=== PATIENT | female | born 1975 | race Caucasian/White ===

== ENCOUNTER 2022-01-26 09:06 | Outpatient (REF) | payer OTHER, SELFPAY ==
--- NOTE | ~2022-01-26 | XR_ITS ---
EXAMINATION: XR KNEE STANDING, BILATERAL XR KNEE, RIGHT CLINICAL INFORMATION: Pain. COMPARISON: No films to compare. TECHNIQUE: Right knee 2 views. Standing view of the knees. BILATERAL KNEES: Standing view of the knees demonstrates some mild medial joint space loss right greater than left. The lateral joint spaces are fairly well preserved. RIGHT KNEE: 2 detailed views of the right knee show the patella to be fairly well seated on the sunrise image. No significant degenerative change is seen. No bony erosion. XR/XR knee RT 2V IMPRESSION: Some mild medial joint space loss is noted right greater than left knee.
--- NOTE | ~2022-01-26 | XR_ITS ---
EXAMINATION: XR KNEE STANDING, BILATERAL XR KNEE, RIGHT CLINICAL INFORMATION: Pain. COMPARISON: No films to compare. TECHNIQUE: Right knee 2 views. Standing view of the knees. BILATERAL KNEES: Standing view of the knees demonstrates some mild medial joint space loss right greater than left. The lateral joint spaces are fairly well preserved. RIGHT KNEE: 2 detailed views of the right knee show the patella to be fairly well seated on the sunrise image. No significant degenerative change is seen. No bony erosion. XR/XR knee standing BI IMPRESSION: Some mild medial joint space loss is noted right greater than left knee.
== END 2022-01-26 09:07 | disposition home or self-care (01) ==
LOC: HO.HOSX 09:06
PROVIDERS: Visit Provider Physician Assistant
DX: M23.91 Unspecified internal derangement of right knee (principal)
CPT/HCPCS: 73560; 73565

== ENCOUNTER 2022-02-03 07:26 | Outpatient (REF) | payer OTHER, SELFPAY ==
--- NOTE | ~2022-02-03 | MR_ITS ---
EXAMINATION: MR KNEE WITHOUT CONTRAST, RIGHT CLINICAL INFORMATION: Right knee pain COMPARISON: Radiographs 01/26/2022 TECHNIQUE: MRI of the knee without contrast was performed using routine sequences on a high-field scanner. FINDINGS: MENISCI: Medial Meniscus: The meniscal body is slightly extruded. No definite tear. Lateral Meniscus: Intact LIGAMENTS: Cruciate: Intact Collateral: Intact EXTENSOR MECHANISM: Intact ARTICULAR CARTILAGE/BONE: Patellofemoral Compartment: Focal cartilage thinning and irregularity with subchondral edema of the medial trochlea inferiorly. Medial Compartment: Cartilage thinning and surface irregularity throughout the weightbearing femoral condyle with minimal marginal osteophytes. Lateral Compartment: Normal JOINT FLUID AND BURSAE: Trace joint effusion. MR/MR knee RT wo con IMPRESSION: The medial meniscus body is slightly extruded. No definite meniscal tear. There is mild medial compartment osteoarthritis with a trace joint effusion.
== END 2022-02-03 07:27 | disposition home or self-care (01) ==
LOC: HO.MRI 07:26
PROVIDERS: PCP Internal Medicine; Visit Provider Physician Assistant
DX: M23.91 Unspecified internal derangement of right knee (principal)
CPT/HCPCS: 73721

== ENCOUNTER → 2022-02-10 12:15 | Outpatient (BNVA) | payer OTHER, SELFPAY | PROVIDERS: PCP Internal Medicine; Visit Provider Physician Assistant | DX: M17.11 Unilateral primary osteoarthritis, right knee (principal) | CPT/HCPCS: J1040 ==

== ENCOUNTER 2022-05-12 07:56 | Outpatient (REF) | payer OTHER, SELFPAY ==
[2022-05-12 12:00] LABS: MANUAL DIFF FLAG NO
[2022-05-12 12:06] LABS: Basophils Percent Auto 0.5 % (0-2); Eosinophils Absolute Auto 0.1 X10*3/uL (0.0-0.4); Eosinophils Percent Auto 1.2 % (0-4); Hematocrit 38.7 % (37.0-47.0); Hemoglobin 12.4 g/dl (12.0-16.0); Imm Gran Abs Auto 0.03 X10*3/uL (0.00-0.03); Imm Gran Pct Auto 0.4 % (0.0-0.4); Lymphocytes Percent Auto 27.1 % (20-40); Mean Corpuscular Hemoglobin 29.8 pg (27.0-33.0); Mean Platelet Volume 10.4 fL (9.4-12.3); Monocytes Absolute Auto 0.5 X10*3/uL (0.1-1.2); Monocytes Percent Auto 7.1 % (2-11); Neutrophils Absolute Auto 4.7 x10*3/uL (2.0-8.3); Neutrophils Percent Auto 63.7 % (45-73); Platelet Count 270 X10*3/uL (160-400); Red Blood Count 4.16 X10*6/uL (4.20-5.50); Red Cell Distribution Width 12.9 % (11.0-16.0); White Blood Count 7.5 X10*3/uL (4.8-10.8)
[2022-05-12 12:38] LABS: Erythrocyte Sedimentation Rate 21 MM/HR (0-20)
[2022-05-12 12:46] LABS: Alanine Aminotransferase 21 U/L (0-31); Albumin Level 4.2 g/dL (3.5-5.0); Alkaline Phosphatase 104 U/L (39-117); Anion Gap 12 (12-20); Aspartate Amino Transferase 15 U/L (5-31); Blood Urea Nitrogen 13 mg/dL (9-16); C Reactive Protein 0.67 mg/dL (< or = 0.50); Calcium 9.2 mg/dL (8.4-10.2); Carbon Dioxide 28 mmol/L (22-29); Chloride 107 mmol/L (96-108); Estimated Glomerular Filt Rate > 60; Glucose Random 127 mg/dL (60-115); Potassium 3.8 mmol/L (3.3-5.1); Sodium 143 mmol/L (135-145); Total Protein 7.2 g/dL (6.5-8.0)
[2022-05-12 12:57] LABS: Creatinine Urine 29.58 mg/dL; Total Protein Urine Random < 7 mg/dL (<12)
[2022-05-12 13:56] LABS: Bilirubin Total 0.3 mg/dL (0.0-1.0)
[2022-05-15 21:42] LABS: Antibody to SS-A Antigen <1.0 NEG AI (<1.0 NEG); Antibody to SS-B Antigen <1.0 NEG AI (<1.0 NEG)
[2022-05-16 12:31] LABS: Anti Nuclear Antibody Screen NEGATIVE (NEGATIVE)
== END 2022-05-12 07:57 | disposition home or self-care (01) ==
LOC: HO.HMGCLDS 07:56
PROVIDERS: PCP Internal Medicine; Visit Provider Internal Medicine Rheumatology
DX: M79.641 Pain in right hand (principal); M79.642 Pain in left hand; M79.671 Pain in right foot; M79.672 Pain in left foot; R63.5 Abnormal weight gain; M25.50 Pain in unspecified joint
CPT/HCPCS: 36415; 80053; 84156; 84443; 85025; 85652; 86038; 86039; 86140; 86235

== ENCOUNTER 2022-05-13 07:49 | Outpatient (REF) | payer OTHER, SELFPAY ==
--- NOTE | ~2022-05-13 | XR_ITS ---
EXAMINATION: BILATERAL HAND X-RAY CLINICAL INFORMATION: Pain COMPARISON: None TECHNIQUE: 3 views of each hand FINDINGS: Bone alignment is normal. No fracture or dislocation is seen. Bone mineralization is normal. Joint spaces are normal. Soft tissues are normal. XR/XR hand RT min 3V IMPRESSION: Unremarkable exam.
--- NOTE | ~2022-05-13 | XR_ITS ---
EXAMINATION: BILATERAL HAND X-RAY CLINICAL INFORMATION: Pain COMPARISON: None TECHNIQUE: 3 views of each hand FINDINGS: Bone alignment is normal. No fracture or dislocation is seen. Bone mineralization is normal. Joint spaces are normal. Soft tissues are normal. XR/XR hand LT min 3V IMPRESSION: Unremarkable exam.
--- NOTE | ~2022-05-13 | XR_ITS ---
EXAMINATION: BILATERAL FOOT X-RAY CLINICAL INFORMATION: Pain. COMPARISON: None. TECHNIQUE: 3 views of each foot. FINDINGS: RIGHT: There is an old healed fracture and a cerclage wire seen in the proximal phalanx of the great toe. No acute fracture or dislocation is seen. There is arthritis at the 1st MTP joint. Joint spaces are otherwise normal. There is a plantar calcaneal spur. Soft tissues are otherwise normal. LEFT: There are postosteotomy changes to the medial 1st metatarsal head. There are cerclage wires in the proximal phalanx of the great toe. There is no acute fracture or dislocation. Joint spaces are normal. There are calcaneal spurs. XR/XR foot RT min 3V IMPRESSION: Post-surgical changes to the bilateral proximal phalanges of the 1st toes and left 1st metatarsal head osteotomy. There is mild arthritis at the right 1st MTP joint. There are bilateral plantar calcaneal spurs.
--- NOTE | ~2022-05-13 | XR_ITS ---
EXAMINATION: BILATERAL FOOT X-RAY CLINICAL INFORMATION: Pain. COMPARISON: None. TECHNIQUE: 3 views of each foot. FINDINGS: RIGHT: There is an old healed fracture and a cerclage wire seen in the proximal phalanx of the great toe. No acute fracture or dislocation is seen. There is arthritis at the 1st MTP joint. Joint spaces are otherwise normal. There is a plantar calcaneal spur. Soft tissues are otherwise normal. LEFT: There are postosteotomy changes to the medial 1st metatarsal head. There are cerclage wires in the proximal phalanx of the great toe. There is no acute fracture or dislocation. Joint spaces are normal. There are calcaneal spurs. XR/XR foot LT min 3V IMPRESSION: Post-surgical changes to the bilateral proximal phalanges of the 1st toes and left 1st metatarsal head osteotomy. There is mild arthritis at the right 1st MTP joint. There are bilateral plantar calcaneal spurs.
== END 2022-05-13 07:50 | disposition home or self-care (01) ==
LOC: HO.XRAY 07:49
PROVIDERS: PCP Internal Medicine; Visit Provider Internal Medicine Rheumatology
DX: M79.641 Pain in right hand (principal); M79.642 Pain in left hand; M79.671 Pain in right foot; M79.672 Pain in left foot
CPT/HCPCS: 73130; 73630

== ENCOUNTER 2022-06-26 17:08 | Outpatient (REF) | payer OTHER, SELFPAY ==
[2022-06-27 13:18] LABS: H Pylori Breath Test Negative (Negative)
== END 2022-06-26 17:09 | disposition home or self-care (01) ==
LOC: HO.LNP 17:08
PROVIDERS: Visit Provider Physician Assistant Surgical
DX: E66.9 Obesity, unspecified (principal)
CPT/HCPCS: 83013

== ENCOUNTER → 2022-07-04 15:34 | Outpatient (BNVA) | payer OTHER, SELFPAY | PROVIDERS: PCP Internal Medicine; Visit Provider Dietitian, Registered | DX: E66.9 Obesity, unspecified (principal); Z71.3 Dietary counseling and surveillance | CPT/HCPCS: 97802 ==

== ENCOUNTER 2022-07-12 06:28 | Outpatient (REF) | payer OTHER, SELFPAY ==
--- NOTE | ~2022-07-12 | XR_ITS ---
EXAMINATION: XR CHEST 2 VIEWS CLINICAL INFORMATION: Obesity. COMPARISON: None. TECHNIQUE: Frontal and lateral views of the chest were obtained. FINDINGS: The heart, great vessels, pulmonary vasculature and mediastinum are normal. The lungs show no focal infiltrate, effusion or pneumothorax. There is no acute osseous abnormality. XR/XR chest 2V IMPRESSION: No active cardiopulmonary disease.
--- NOTE | 2022-07-12 06:42 | ECG_ITS ---
Test Reason : e66.9 Blood Pressure : / mmHG Vent. Rate : 062 BPM Atrial Rate : 062 BPM P-R Int : 162 ms QRS Dur : 086 ms QT Int : 418 ms P-R-T Axes : 037 020 047 degrees QTc Int : 424 ms Normal sinus rhythm Normal ECG No previous ECGs available Referred By: Jarvis Emery Electronically Signed By:ALVIN CARROLL
[2022-07-12 07:36] LABS: Estimated Average Glucose 111 mg/dL; Hemoglobin A1c % 5.5 %
[2022-07-12 07:56] LABS: C Reactive Protein 0.75 mg/dL (< or = 0.50); Cholesterol 187 mg/dL; HDL Cholesterol 55 mg/dL; Iron 63 mcg/dL (30-160); LDL Cholesterol Calculated 118 mg/dl; Percent Iron Saturation 20 % (15-50); Total Iron Binding Capacity 320 mcg/dL (228-428); Triglycerides 71 mg/dL; Unsaturated Iron Binding 257 ug/dL
[2022-07-12 08:20] LABS: Ferritin 115 ng/mL (10-250); Insulin 10 uU/mL (2-29); TSH reflex Free T4 1.02 uIU/mL (0.32-4.0)
[2022-07-12 08:48] LABS: Vitamin B12 1968 pg/mL (200-900)
[2022-07-13 13:17] LABS: Calcium (PTHI) 10.2 mg/dL (8.6-10.2); PTHI 78 pg/mL (16-77)
[2022-07-17 01:11] LABS: Zinc 69 mcg/dL (60-130)
[2022-07-17 06:07] LABS: Vitamin B1 9 nmol/L (8-30)
[2022-07-19 01:43] LABS: Vitamin A 49 mcg/dL (38-98)
== END 2022-07-12 06:29 | disposition home or self-care (01) ==
LOC: HO.XRAY 06:28
PROVIDERS: PCP Internal Medicine; Visit Provider Physician Assistant Surgical
DX: E66.9 Obesity, unspecified (principal)
CPT/HCPCS: 36415; 71046; 80061; 82306; 82607; 82728; 82746; 83036; 83525; 83540; 83970; 84425; 84443; 84590; 84630; 86140; 93005

== ENCOUNTER 2022-07-24 08:54 | Outpatient (REF) | payer OTHER, SELFPAY ==
--- NOTE | ~2022-07-24 | US_ITS ---
EXAMINATION: US COMPLETE ABDOMEN WITH LIVER ELASTOGRAPHY CLINICAL INFORMATION: Obesity. COMPARISON: None. TECHNIQUE: Real-time imaging of the abdominal viscera. Noninvasive ultrasound liver fibrosis assessment is performed using Violeta ElastPQ point quantification shear wave elastography (2D-SWE) with a C5-2 MHz transducer. Multiple elastography samples are obtained. FINDINGS: PANCREAS: Normal. The visualized pancreatic head and body are normal in appearance. The remainder of the Pancreas is obscured from visualization by the overlying bowel gas. ABDOMINAL AORTA: The proximal, middle, and distal aortic segments are normal in caliber. INFERIOR VENA CAVA: Visualized portions are normal. LIVER: The liver demonstrates normal size, contour and generally increased echogenicity. No focal lesion or intrahepatic biliary duct dilatation. The right lobe measures 18.4 cm in length. The left lobe measures 12.8 cm in length. Portal flow is towards the liver (hepatopetal). Shear wave liver elastography median stiffness is 1.78 m/s (reference: normal median stiffness is 1.3 m/s or less). IQR/median stiffness to assess sampling precision is 0.07 (reference: good quality data set is IQR/median stiffness of 0.15 or less). GALLBLADDER: Normal. The gallbladder is physiologically distended without evidence of stones, sludge, polyps, wall thickening or pericholecystic fluid. COMMON BILE DUCT: Normal in caliber measuring 0.6 cm in diameter. RIGHT KIDNEY: Normal. There is mild pelviectasis, without abhay hydronephrosis. No renal calculi or focal parenchymal lesions. The kidney measures 11.8 cm in maximum dimension. LEFT KIDNEY: Normal. There is mild pelviectasis, without abhay hydronephrosis. No renal calculi or focal parenchymal lesions. The kidney measures 13.0 cm in maximum dimension. SPLEEN: Normal. The spleen measures 10.9 cm in maximum dimension. FREE FLUID: None. US/US abdomen comp w elastography IMPRESSION: 1. There is generalized increase in hepatic echotexture, consistent with fatty infiltration or hepatocellular disease. Please correlate clinically. No focal hepatic mass or intrahepatic biliary dilatation is seen. 2. Liver elastography: Measurements are suggestive of compensated advanced chronic liver disease but need further test for confirmation. REFERENCE: Society of Radiologists in Ultrasound Liver Stiffness Thresholds (2020): LIVER STIFFNESS THRESHOLDS: *Liver Stiffness equal or less than 1.3 m/s: High probability of being normal. *Liver Stiffness less than 1.7 m/s: In the absence of other known clinical signs, rules out compensated advanced chronic liver disease. *Liver Stiffness 1.7-2.1 m/s: Suggestive of compensated advanced chronic liver disease but need further test for confirmation. *Liver Stiffness over 2.1 m/s: Rules in compensated advanced chronic liver disease. *Liver Stiffness over 2.4 m/s: Suggestive of clinically significant portal hypertension. QUALITY OF DATA SET: *IQR/Median value equal or less than 0.15 implies a quality data set. *IQR/Median value over 0.15 implies a poor quality data set. SIGNIFICANT CHANGE FROM PRIOR EXAM: Significant change if liver stiffness measurement is 10% or greater from prior exam. OTHER CONSIDERATIONS: The stage of liver fibrosis may be overestimated in the setting of acute hepatitis, liver inflammation, elevated liver function tests, hepatic vascular congestion, obstructive cholestasis, non-fasting state, and infiltrative diseases such as amyloidosis and lymphoma. In some patients with NAFLD, the liver stiffness thresholds for compensated advanced chronic liver disease may be lower. In causes other than viral hepatitis and NAFLD, liver stiffness thresholds are not well established.
--- NOTE | ~2022-07-24 | FL_ITS ---
EXAMINATION: XR FLUOROSCOPY UPPER GI WITH AIR CLINICAL INFORMATION: Obesity. COMPARISON: None TECHNIQUE: Routine upper GI air-contrast study was performed in upright and lying position. FINDINGS: Following oral administration of thick barium and effervescent granules, there is normal propagation of bolus from the oral cavity through the pharynx, esophagus into stomach without any evidence of obstruction, narrowing or stricture. The course, caliber and peristalsis of the stomach and the duodenum is normal. There is increased flocculation of barium in the antrum and pyloric channel suggestive of increased acidity. Mucosal pattern of the duodenal bulb and the sweep is normal. There is mild gastroesophageal reflux without hiatal hernia. FLUOROSCOPY TIME: 2.9 minutes DOSE AREA PRODUCT: 55.243 uGy-m2 (microgray-meter squared) IMAGES: 68 FL/FL upper GI w air IMPRESSION: Mild gastroesophageal reflux without hiatal hernia. Suspect increased acidity in the stomach.
== END 2022-07-24 08:55 | disposition home or self-care (01) ==
LOC: HO.US 08:54
PROVIDERS: Visit Provider Physician Assistant Surgical
DX: Z01.818 Encounter for other preprocedural examination (principal); E66.9 Obesity, unspecified
CPT/HCPCS: 74246; 76705; 76981

== ENCOUNTER → 2022-07-27 11:56 | Outpatient (BNVA) | payer OTHER, SELFPAY | PROVIDERS: PCP Internal Medicine; Visit Provider Counselor Mental Health | DX: F43.20 Adjustment disorder, unspecified (principal) | CPT/HCPCS: 90791 ==

== ENCOUNTER 2022-08-12 07:25 | Outpatient (REF) | payer OTHER, SELFPAY ==
[2022-08-12 07:58] LABS: MANUAL DIFF FLAG NO
[2022-08-12 08:26] LABS: Basophils Absolute Auto 0.1 X10*3/uL (0.0-0.2); Basophils Percent Auto 0.9 % (0-2); Eosinophils Absolute Auto 0.1 X10*3/uL (0.0-0.4); Eosinophils Percent Auto 1.6 % (0-4); Hematocrit 42.1 % (37.0-47.0); Hemoglobin 13.5 g/dl (12.0-16.0); Imm Gran Abs Auto 0.02 X10*3/uL (0.00-0.03); Imm Gran Pct Auto 0.3 % (0.0-0.4); Lymphocytes Absolute Auto 1.9 X10*3/uL (1.2-4.9); Lymphocytes Percent Auto 29.5 % (20-40); Mean Corpuscular HGB Conc 32.1 g/dl (31.0-35.0); Mean Corpuscular Hemoglobin 29.7 pg (27.0-33.0); Mean Corpuscular Volume 92.7 fL (80.0-98.0); Mean Platelet Volume 10.2 fL (9.4-12.3); Monocytes Absolute Auto 0.6 X10*3/uL (0.1-1.2); Monocytes Percent Auto 8.7 % (2-11); Neutrophils Absolute Auto 3.8 x10*3/uL (2.0-8.3); Platelet Count 274 X10*3/uL (160-400); Red Blood Count 4.54 X10*6/uL (4.20-5.50); Red Cell Distribution Width 12.7 % (11.0-16.0); White Blood Count 6.4 X10*3/uL (4.8-10.8)
[2022-08-12 08:28] LABS: Prothrombin Time 11.4 SEC (10.0-13.1)
[2022-08-12 08:30] LABS: Partial Thromboplastin Time 39.9 SEC (26.0-36.4)
[2022-08-12 09:17] LABS: Alanine Aminotransferase 22 U/L (0-31); Albumin Level 4.3 g/dL (3.5-5.0); Alkaline Phosphatase 116 U/L (39-117); Anion Gap 13 (12-20); Aspartate Amino Transferase 17 U/L (5-31); Bilirubin Total 0.4 mg/dL (0.0-1.0); Blood Urea Nitrogen 12 mg/dL (9-16); C Reactive Protein 0.87 mg/dL (< or = 0.50); Calcium 10.1 mg/dL (8.4-10.2); Carbon Dioxide 29 mmol/L (22-29); Chloride 108 mmol/L (96-108); Cholesterol 178 mg/dL; Estimated Glomerular Filt Rate > 60; Glucose Random 110 mg/dL (60-115); HDL Cholesterol 56 mg/dL; LDL Cholesterol Calculated 109 mg/dl; Sodium 145 mmol/L (135-145); Total Protein 7.3 g/dL (6.5-8.0); Triglycerides 69 mg/dL
[2022-08-12 09:19] LABS: Estimated Average Glucose 114 mg/dL; Hemoglobin A1c % 5.6 %
[2022-08-12 09:43] LABS: Insulin 8 uU/mL (2-29); TSH reflex Free T4 0.87 uIU/mL (0.32-4.0)
== END 2022-08-12 07:26 | disposition home or self-care (01) ==
LOC: HO.LAB 07:25
PROVIDERS: Visit Provider Surgery
DX: E66.9 Obesity, unspecified (principal); K21.9 Gastro-esophageal reflux disease without esophagitis; Z68.31 Body mass index [BMI] 31.0-31.9, adult
CPT/HCPCS: 36415; 80053; 80061; 83036; 83525; 84443; 85025; 85610; 85730; 86140

== ENCOUNTER 2022-08-15 07:32 | Inpatient (IN) | payer OTHER, SELFPAY ==
[2022-08-10 12:57] VITALS: BMI 31.1
--- NOTE | 2022-08-11 09:42 | P.CONAN_ITS ---
Documented by User: Dari Stover NP 08/11/22 09:43 HPI - Anesthesia Eval Consult details Narrative: 47yo F for Gastrectomy Sleeve, EGD, possible diaphragmatic hernia, possible ventral hernia, possible open PMFSH Active Problems Active Problems: All Active Problems (Updated 08/10/22 @ 12:57 by Carolyn Barlow RN) Sjogren's disease (Acute) Multiple joint pain (Acute) Breast cancer (Acute) History of endometrial cancer (Acute) Foot pain, bilateral (Acute) Bilateral hand pain (Acute) Weight gain (Acute) Obesity (BMI 30-39.9) (Acute) Osteoarthritis (Acute) BMI 34.0-34.9,adult (Acute) GERD (gastroesophageal reflux disease) (Acute) Adjustment disorder, unspecified (Acute) Uterine cancer (Acute) HX: breast cancer (Acute) Past Medical History Medical History (Updated 08/15/22 @ 12:56 by Rocael Wang MD) Bunion Fatty liver HX: breast cancer Uterine cancer Vasovagal episode Surgical History Surgical History (Updated 08/15/22 @ 12:56 by Rocael Wang MD) H/O hysterectomy for benign disease History of back surgery History of bunionectomy of both great toes History of carpal tunnel release of both wrists History of lumpectomy of both breasts History of surgery on arm Hx of cholecystectomy Hx of tonsillectomy Social History Social History Household Members: Significant Other Housing: House Are you a primary career services officer to a significant other at home: No Do you presently have visiting nurse or other home services: No Alcohol intake: current Alcohol intake frequency: holidays/special occasions only Alcohol type: wine Patient Tobacco Use Status: Former Tobacco user Quit Date: 11/2021 but is vaping Tobacco use type: Cigarette Years Smoked: Quit in Nov 2021 now vaping 2-3 times a day 2 mg e-Cigarette/Vaping Use: Currently Using Use of substances other than those prescribed or required for medical reasons: No Currently Displaying Signs/Symptoms of Drug Intoxication Withdrawal: No Have you been hit, kicked, punched, or otherwise hurt by someone within the past year? 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 [facility] [place] Meds Allergies Allergy/AdvReac Type Severity Reaction Status Date / Time morphine Allergy Severe Anaphylaxis Verified 08/11/22 12:37 Home Medications Medication Instructions Recorded Confirmed Last Taken Type tamoxifen 10 mg tablet 10 mg PO BID 01/26/22 08/11/22 07/25/22 History acetaminophen 500 mg tablet 1,000 mg PO BID 05/11/22 08/11/22 08/14/22 History (Tylenol Extra Strength) ascorbic acid (vitamin C) 1,000 mg 1 g PO DAILY 05/11/22 08/11/22 08/12/22 History tablet cholecalciferol (vitamin D3) 125 125 mcg PO .EVERY OTHER DAY 05/11/22 08/11/22 08/12/22 History mcg (5,000 unit) capsule diphenhydramine 25 1 tab PO BEDTIME PRN Insomnia 05/11/22 08/11/22 08/12/22 History mg-acetaminophen 500 mg tablet (Tylenol PM Extra Strength) ibuprofen 800 mg tablet 800 mg PO Q6H PRN Pain 05/11/22 08/11/22 08/09/22 History Exam Exam Date and Time: August 11, 2022 0942 Height,Weight and Vital Signs: Height 5 ft 8 in Weight 93.071 kg Pertinent Lab Results Pertinent Lab Results: Laboratory Tests 05/12/22 05/12/22 08:05 08:05 WBC 7.5 Hgb 12.4 Hct 38.7 Plt Count 270 Sodium 143 Potassium 3.8 Chloride 107 Carbon Dioxide 28 BUN 13 Creatinine 0.70 Narrative Narrative: EKG 07/2022 Vent. Rate : 062 BPM ? ? Atrial Rate : 062 BPM ?? P-R Int : 162 ms? QRS Dur : 086 ms ? ? QT Int : 418 ms ? ? ? P-R-T Axes : 037 020 047 degrees ?? QTc Int : 424 ms ? Normal sinus rhythm Normal ECG No previous ECGs available Assessment and Plan Assessment Anesthesia Assessment: Chart Reviewed Documented by User: Shravan Oreilly MD 08/15/22 17:16 [facility] Past Medical History Medical History (Updated 08/15/22 @ 12:56 by Rocael Wang MD) Bunion Fatty liver HX: breast cancer Uterine cancer Vasovagal episode Functional capacity: independent ambulation Family History Family history of problems with anesthesia: No Surgical History Surgical History (Updated 08/15/22 @ 12:56 by Rocael Wang MD) H/O hysterectomy for benign disease History of back surgery History of bunionectomy of both great toes History of carpal tunnel release of both wrists History of lumpectomy of both breasts History of surgery on arm Hx of cholecystectomy Hx of tonsillectomy History of Problems with Anesthesia: No Social History Social History Household Members: Significant Other Housing: House Are you a primary career services officer to a significant other at home: No Do you presently have visiting nurse or other home services: No Alcohol intake: current Alcohol intake frequency: holidays/special occasions only Alcohol type: wine Patient Tobacco Use Status: Former Tobacco user Quit Date: 11/2021 but is vaping Tobacco use type: Cigarette Years Smoked: Quit in Nov 2021 now vaping 2-3 times a day 2 mg e-Cigarette/Vaping Use: Currently Using Use of substances other than those prescribed or required for medical reasons: No Currently Displaying Signs/Symptoms of Drug Intoxication Withdrawal: No Have you been hit, kicked, punched, or otherwise hurt by someone within the past year? 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[facility] [place] Meds Allergies Allergy/AdvReac Type Severity Reaction Status Date / Time morphine Allergy Severe Anaphylaxis Verified 08/11/22 12:37 Home Medications Medication Instructions Recorded Confirmed Last Taken Type tamoxifen 10 mg tablet 10 mg PO BID 01/26/22 08/11/22 07/25/22 History acetaminophen 500 mg tablet 1,000 mg PO BID 05/11/22 08/11/22 08/14/22 History (Tylenol Extra Strength) ascorbic acid (vitamin C) 1,000 mg 1 g PO DAILY 05/11/22 08/11/22 08/12/22 History tablet cholecalciferol (vitamin D3) 125 125 mcg PO .EVERY OTHER DAY 05/11/22 08/11/22 08/12/22 History mcg (5,000 unit) capsule diphenhydramine 25 1 tab PO BEDTIME PRN Insomnia 05/11/22 08/11/22 08/12/22 History mg-acetaminophen 500 mg tablet (Tylenol PM Extra Strength) ibuprofen 800 mg tablet 800 mg PO Q6H PRN Pain 05/11/22 08/11/22 08/09/22 History Exam Airway Mallampati Class: III TM Dist: >3cm Neck ROM: Full Denture: Upper and Lower Loose/Missing/Broken Teeth: Yes Heart: S1,S2 Lungs: b/l breath sounds Assessment and Plan Assessment Anesthesia Assessment: Anesthesia Plan Discussed Final Anesthetic Review Family History of Problems with Anesthesia: No History of Problems with Anesthesia: No NPO: Yes ASA Class: III Final Preanesthetic Review: Meds/Allgs Chart Reviewed, Consent Obtained/Reviewed and Anes Risks/Benef Reviewed Patient Risk: High Procedure Risk: Intermediate Anesthetic Plan Anesthetic Plan: GA Disposition: Standard PACU
--- NOTE | 2022-08-12 11:30 | MHC.SHP ---
Pre-Procedural Eval Section A Date of Service: 08/12/22 The patient is an INPATIENT: Yes The History & Physical has been completed within 30 days and I have reviewed it.: Yes Section B Chief Complaint: Obesity, unspecified Relevant Family History (Specify if Yes): No Relevant Social History: None Present Medications: None Medical History: No relevant PMH History of Previous Operations: No relevant previous surgery Allergies: Allergies Allergy/AdvReac Type Severity Reaction Status Date / Time morphine Allergy Severe Anaphylaxis Verified 08/11/22 12:37 Review of Systems Sugical H&P ROS: Negative: Constitution, Cardiovascular, Respiratory, Neurological, Psychiatric, Hem-Onc, Allergic/Immunologic, Gastrointestinal, Genitourinary, Musculoskeletal, Integumentary, Endocrine and Eyes/Ears/Nose/Throat Exam Surgical H&P Exam: Normal: HEENT, Normal: Heart, Normal: Lungs, Normal: Extremities, Normal: Abdomen, Normal: Skin and Normal: Neurological Plan Diagnosis/Plan: Unchanged I have reviewed the history and physical and performed a pertinent physical examination on my patient. No changes have occurred unless specified.
[2022-08-15] VITALS (13 sets, daily range): BP systolic 113–150; BP diastolic 63–86; PULSE 71–96; RESP 16–18; TEMP 36–37.1; O2SAT 94–100
[2022-08-15 08:27] LABS: COVID-19 Test Negative (Negative)
[2022-08-15] MEDS: Lactated Ringers 1,000 ML 100 ML IVCONT ×3 (08:30→23:47)
[2022-08-15] MEDS: Lactated Ringers 1,000 ML 999 ML IV (08:30)
--- NOTE | 2022-08-15 10:30 | P.BOP_ITS ---
Brief Operative Note Date of Service: 08/15/22 Pre-op diagnosis: Severe obesity with comorbidities (see below) Post-op diagnosis: same Procedure: INITIAL PATIENT BMI ON PRESENTATION AT OUR OFFICE: 34.5 kg/m2 LAST BMI BEFORE SURGERY: 31.2 kg/m2 COMORBIDITIES: GERD, uterine Cancer, DJD, liver fibrosis ?The patient presented to the Weight Management Program with significant obesity that was negatively impacting the patient's comorbidities as listed above.? The program is a phased program with a special focus on preoperative medical weight management to promote substantial weight loss and prepare the patients for the second phase of the program: bariatric surgery. The patient participated in an intensive weekly lifestyle ?intervention and exercise program during which the patient ?has lost between the initial office visit and the last preoperative visit 22.4lbs, or 9.84% of initial actual body weight. It was deemed appropriate for the patient to now have bariatric surgery. In light of the current Covid-19 pandemic and the well documented strong association of obesity and increased risk of worse outcomes if infected with Covid-19 (REFERENCES: https://pubmed.ncbi.nlm.nih.gov/46286295/ ,? https:/ /pubmed.ncbi.nlm.nih.gov/44521430/ ), any delay in undergoing bariatric surgery may lead to the patient's worsening health condition and increased?risk of more severe Covid-19 disease if infected. In addition a recent?study from [facility] published in [facility] on 10/31/2021 ([email or web address]) found that, among patients with obesity, substantial weight loss achieved with surgery was associated with improved outcomes of COVID-19 infection. The findings suggest that obesity can be a modifiable risk factor for the severity of COVID-19 infection. In addition, the patient met the BMI-criteria for bariatric surgery based on the BMI on initial presentation. The patient should not be penalized for achieving such weight loss because ?it is not sustainable long-term without surgical intervention and it was achieved in preparation for bariatric surgery ?under my direction and based on my published research ([email or web address]).[email or web address] and? https://www.soard.org/article/[email or web address](19)14454-X/pdf ) ?that a 10% preoperative weight loss improves long-term weight loss after surgery and reduces perioperative complications.? Insurance carriers such as [facility] have endorsed my recommendations ?and have included in their policies criteria to include a 10% preoperative weight loss requirement. PROCEDURE: Esophago-gastroscopy, laparoscopic repair of incarcerated diaphragmatic hernia, laparoscopic sleeve gastrectomy, laparoscopic lysis of adhesions and laparoscopic gastropexy INDICATIONS: This is a 47 year-old female who was electively scheduled for laparoscopic, possibly open sleeve gastrectomy. The risks and complications of the procedure were discussed with the patient in advance, particularly the possibility of ; pulmonary embolism; staple line leak; bleeding; GERD; cardiac, pulmonary, or renal complications; as well as long-term problems such as insufficient weight loss, vitamin deficiency, strictures, or ulcers. The patient understood all the risks, and was in agreement to proceed with surgery. DESCRIPTION OF PROCEDURE: After informed consent was obtained from the patient, the patient was given preoperative antibiotics, and was transferred to the operating room. After successful induction of general anesthesia, pneumatic compression devices were placed on both lower extremities. An upper endoscopy was performed next. The oropharynx and esophagus appeared to be within normal limits. There was a diaphragmatic hernia present of moderate size that was not reported at the preoperative upper GI. The stomach was entered. Then after all fluid and air were suctioned and the stomach was fully decompressed, the scope was withdrawn and secured in the mid esophagus. The patient was then prepped and draped in the usual sterile manner, and abdominal access was established at the right upper quadrant with the Gelacio technique. A 12 mm blunt port was inserted, and the abdomen was insufflated with CO2 to a pressure of 15 mmHg. Under direct visualization, additional ports were placed, specifically two 5 mm Versi-step ports to the left upper quadrant, and a 5 mm Versi-Step port to the right upper quadrant. 1% lidocaine plain was used to infiltrate all port sites as well as all fascia defects. Following that, the patient was placed in a steep reverse Trendelenburg position. An additional 5 mm port was placed to the right flank for the Mediflex retractor that was used to retract the left lobe of the liver. The gastro-esophageal fat pad was opened with the ultrasonic device (Thunderbeat, Olympus) and the anterior esophagus and hiatus were exposed. The angle of His was opened with the ultrasonic device the fundus of the stomach from any diaphragmatic and splenic attachments. I then opened the gastrocolic ligament between the transverse colon and the greater curvature of the stomach with the ultrasonic device to enter the lesser sac and facilitate the ligation of the short gastric vessels. I started at a mid-point along the greater curvature and using the Thunderbeat, all short gastric vessels were divided all the way to the angle of His until the left mary was completely dissected at its entirety. I then divided the gastro-colic ligament distally to a distance of about 3-4 cm proximal to the pylorus. There were extensive congenital adhesions between the pancreas and posterior gastric wall. Those were lysed completely with the ultrasonic device. Adhesiolysis took approximately 45 min to complete. There was an obvious significant-sized hiatal hernia. I continued dissecting along the hiatus toward the left mary and the angle of His. I fully mobilized the fat pad that was incarcerated in the hernia. I then continued by dissecting even further into the posterior retro-esophageal space all the way to the angle of His. I continued to mobilize the esophagus into the mediastinum circumf erentially. Both vagal nerves were seen and preserved. At that point, I was able to have at least 3 to 5 cm of esophagus into the abdomen.? After I completely mobilized the esophagus from both the left and right mary and I had a good mobilization of the esophagus circumferentially, I closed the hernia defect with four interrupted #0 Surgidac sutures using the Endo Stitch device, three of which were placed posterior and one of which anterior to the esophagus. ? The stomach was then divided transversely with one Endo EDUAR-45 purple, one EDUAR- 45 orange load and three EDUAR-60 articulating orange loads using the AEON stapler and loads. Every effort was made that the gastric sleeve had a tubular shape and an even caliber throughout. Once the sleeve resection was completed, the staple line of the gastric sleeve was reinforced with Hemoclips. The resected stomach was retrieved without difficulty from the Gelacio port. A gastropexy was then performed in order to prevent postoperative GERD and pa rtial gastric volvulus. Several interrupted 2.0 Surgidac sutures were placed between the sleeve's staple line and the previously divided greater omentum and gastro-colic ligament using the Endo-Stitch device. ?An upper endoscopy was performed. There was no narrowing at the GE junction. The scope was easily advanced all the way to the pylorus which was clearly visualized. There was no narrowing anywhere and the sleeve's caliber was even throughout. The sleeve's staple line was inspected and there was no evidence of ischemia, bleeding or dehiscence. At that point the gastroscope was withdrawn f rom the patient?s mouth while we were decompressing the bowel and the stomach from any remaining air. I looked into the lesser sac to see how the sleeve was situating and it was situating well. There was no bleeding from the staple line, spleen, or short gastric vessels. The Mediflex retractor was removed, and the undersurface of the liver was inspected and there was no bleeding. The patient was placed in supine position. I closed the fascial defect of the 12 mm port site with a figure of eight #1 Polysorb suture. Then 30cc of Ropivacaine plain with 10 mg of Dexamethasone were used to infiltrate the fascial closure as well as all skin incisions. A total of 7ml of Zynrelef was applied in the Gelacio wound. At this point, the abdomen was deflated, all ports were removed under direct vision, and no bleeding was noted from any of the port sites. The skin incisions were irrigated with saline and were closed with 4-0 absorbable monofilament sutures. Steri-Strips and OpSites were used to cover all incisions. The patient was extubated and was transferred in stable condition to the recovery room for further care. I was present and performed all galvez parts of the procedure. Ms. Sanchez was the bindery library technical assistant. There were no residents to assist with this case. Aime Wang MD, PhD, FACS Surgeon: Rocael Wang MD Anesthesia: GETA, local and other (TAP block and 7ml Zynrelef) Was an Heavy Equipment Mechanic used for this Procedure?: No Heavy Equipment Mechanic: Nona Sanchez Estimated blood loss (mL): 10 IV fluids (mL): 2,500 Urine output (mL): 0 (No Christianson to record) Pathology: other (Stomach) Condition: stable Disposition: PACU
--- NOTE | 2022-08-15 10:34 | PM.PNGS ---
Subjective Subjective Date of Service: 08/16/22 Interval history: Patient has mild incisional pain, but was able to ambulate and use the incentive spirometer. She is tolerating phase 1 bariatric diet Physical Exam Vital Signs: Vital Signs: Last Vital Signs Temp 98.3 F 08/15/22 08:10 Pulse 72 08/15/22 08:10 Resp 16 08/15/22 08:10 BP 113/63 08/15/22 08:10 Pulse Ox 98 08/15/22 08:10 O2 Del Method 08/15/22 08:10 BMI result Body Mass Index 31.1 GI: Inspection: Yes normal to inspection, Yes incision (clean, dry and intact) and Yes obesity Extrem: Right lower extremity: normal to inspection (no calf tenderness) Left lower extremity: normal to inspection (no calf tenderness) Objective Data Active Medications Lactated Ringer's (Lr) 1,000 mls @ 100 mls/hr IVCONT .Q10H HORACIO Last Admin: 08/15/22 08:30 Dose: 100 mls/hr Documented By: GREGG Labs CBC & Chem 7: 08/16/22 06:18 08/16/22 06:18 Labs: Laboratory Results - last 24 hr 08/15/22 08:00 COVID-19 ([facility]) Negative COVID-19 Clin Com See Note Procedures Date of Service Date of Service: 08/16/22 Progress Note: A&P Assessment and plan (1) Obesity (BMI 30-39.9): Status: Acute Assessment and Plan: s/p laparoscopic sleeve gastrectomy, lysis of adhesions repair of diaphragmatic hernia, and gastropexy Doing well Check am labs. 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
--- NOTE | 2022-08-15 11:19 | PHA.MEDREC ---
Pharmacy Consult ? Medication Reconciliation Pharmacy has reviewed the medication reconciliation completed by nursing. I left tamoxifene unconfirm, per Dr. Wang can restart 09/15/22. Eden Henley, PharmD
--- NOTE | 2022-08-15 13:11 | PM.DS ---
DS: Providers Provider Date of Service: 08/16/22 Date of admission: 08/15/22 07:32 Primary care physician: Lisa Mercado MD DS: Diagnosis Discharge Diagnosis (1) Obesity (BMI 30-39.9): Status: Acute (2) BMI 31.0-31.9,adult: Status: Acute (3) Breast cancer: Status: Acute (4) Uterine cancer: Status: Acute (5) GERD (gastroesophageal reflux disease): Status: Acute (6) Fatty liver: Status: Acute (7) Osteoarthritis: Status: Acute (8) Liver fibrosis: Status: Acute (9) S/P laparoscopic sleeve gastrectomy: Status: Acute (10) Status post repair of paraesophageal diaphragmatic hernia: Status: Acute (11) Diaphragmatic hernia: Status: Acute (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 The patient had extensive work-up,lost 19.2 lbs preoperatively and was electively scheduled for laparoscopic, possible open sleeve gastrectomy and gastropexy. Risks and complications of the surgery were discussed with the patient in advance, particularly the possibility of , pulmonary embolism, anastomotic leak, bleeding, bowel injury, GERD, cardiac, renal or pulmonary complications. The patient understood all the risks and was in agreement with the surgical plan. Hospital Course: The patient underwent an uneventful laparoscopic sleeve gastrectomy with gastropexy and repair of diaphragmatic hernia on the day of admission. Postoperatively, the patient was transferred to the surgical floor. The patient received IV Acetaminophen and IV dilaudid for pain control. Patient was started on bariatric phase 1 diet POD #0. On postoperative day one, the patient was feeling well without nausea, vomiting, fevers, or tachycardia. The patient had some mild incisional pain and the abdomen was soft. On the morning of postoperative day one, the patient was continued on 1 ounce of water or ice every half hour. During the day, the patient did fairly well, having some incisional pain, but able to ambulate adequately and to tolerate liquids well. Since the patient is doing well, we decided that the patient was ready to be discharged. The patient was given instructions to follow-up with me next week and to call my office for any fever over 101, persistent abdominal pain, nausea, vomiting, GERD, symptoms of DVT such as calf tenderness, or leg swelling, or pulmonary embolism such as chest pain or shortness of breath. The patient was also instructed to drink 40-60 ounces of liquids per day using the 1-ounce cups. The patient had been given prescriptions for Tylenol for pain, Zofran prn for nausea, and pantoprazole and carafate previously. The patient was encouraged to ambulate and use the incentive spirometer. The patient was allowed to shower, but no baths, and encouraged to stay active at home. All of these instructions were given to the patient personally. All questions were answered and the patient understood all instructions, the instructions were also given to the patient in print. Time Spent with Patient Time attestation: Total time spent providing and/or coordinating discharge services: Discharge coordination time: Less than 30 minutes Quality: Safe Use of Opioids Does Pt have an Active Cancer Diagnosis on the Problem List?: No Quality: Stroke Does the patient have a stroke diagnosis?: No Physical Exam Vital Signs: Vital Signs: Last Vital Signs Temp 98.3 F 08/15/22 08:10 Pulse 72 08/15/22 08:10 Resp 16 08/15/22 08:10 BP 113/63 08/15/22 08:10 Pulse Ox 98 08/15/22 08:10 O2 Del Method 08/15/22 08:10 BMI result Body Mass Index 31.1 DS: Data Data Completed and Pending Pending studies at discharge: Pending at discharge 08/15/22 12:37 Surgical [PTH] Routine Labs on day of discharge: Laboratory Results - last 24 hr 08/15/22 08:00 COVID-19 ([facility]) Negative COVID-19 Clin Com See Note Discharge Plan Discharge Anticipated Discharge Date/Time: 08/16/22 10:07 Patient Disposition: Home, Self-Care Discharge Diagnosis: s/p lap sleeve gastrectomy and paraesophageal hernia repair Referrals: Lisa Mercado MD [Primary Care Provider] - 1 Week Discharge Medications: Continued acetaminophen [Tylenol Extra Strength] 500 mg tablet 1,000 mg PO BID pantoprazole 40 mg tablet,delayed release (DR/EC) 40 mg PO DAILY Qty: 30 2RF sucralfate 100 mg/mL suspension 10 ml PO BID Qty: 400 2RF Label Comments: POST OP MED ondansetron HCl 4 mg tablet 4 mg PO Q12H Qty: 20 0RF Label Comments: POT OP MED Held tamoxifen 10 mg tablet 10 mg PO BID Hold Instructions: Resume on 09/15/22. Discontinued thiamine HCl (vitamin B1) 100 mg tablet 100 mg PO DAILY Qty: 30 2RF ibuprofen 800 mg tablet 800 mg PO Q6H PRN (Reason: Pain) diphenhydramine-acetaminophen [Tylenol PM Extra Strength] 25-500 mg tablet 1 tab PO BEDTIME PRN (Reason: Insomnia) ascorbic acid (vitamin C) 1,000 mg tablet 1 g PO DAILY cholecalciferol (vitamin D3) 125 mcg (5,000 unit) capsule 125 mcg PO .EVERY OTHER DAY Discharge Orders: Discharge Order (Routine); Ordered 08/16/22 Ordered By: Rocael Wang Diet: bariatric diet Activity on Discharge: No heavy lifting Stand Alone Forms: Patient Portal Discharge page Care Plan Goals: weight loss Health Concerns: morbid obesity Plan of Treatment: No tub baths, sex or returning to work until discussed at first post op appointment. No exercise, alcohol, tobacco or illegal drug use. Continue to use incentive spirometer hourly while awake. Walk in home for 5- 10 minutes every 2 hours during the first week. Continue phase 1 diet today and start phase 2 diet tomorrow morning. Follow all instructions in the bariatric handbook and call with any questions. 1. Please call your doctor or come back to the emergency room should any new symptoms arise. 2. You will receive a courtesy call from [facility] 24-48 hours after discharge. 3. Activity: abstain from alcohol, practice limited stair climbing, no bending, no driving, no exercise, no illicit substances, no lifting, no sex, no tub bath, no work. 4. Diet: continue as discussed with bariatric team.. 5. Dressing Change/Wound Care: Do not change or remove surgical dressings unless they are wet or soiled. 6. Call your doctor if: - Your temperature exceeds 101.5 F - You experience excessive pain or swelling - You have an unexpected reaction to medication - You have excessive bleeding - You experience continued vomiting/nausea - Your incision begins to separate - Your incision shows signs of infection such as increased redness, swelling, excessive pain, heat, or drainage (light blood or clear fluid is normal) 7. General instructions: No lifting greater than 5 lbs for the next 4 weeks[address] driving within 24 hours of taking narcotic pain medications. If you do not move your bowels in the next 2 days, please take milk of magnesia over the counter. Please follow the post op diet and do not advance your diet until you are seen in the office in about 2 weeks. Please walk around your home every hour or two to prevent blood clots from forming in your legs. You do not need to wake from sleeping to walk. Please sleep in a bed or couch to prevent kinking at the hips and knees. Please take your incentive spirometer (your lung fixture designer) home with you and use it for the next few days to prevent pneumonias. You may shower, no hot tubs, baths or swimming pools. Please call the office with any questions or concerns such as increasing abdominal pain, fever, chills, shortness of breath, chest pain, leg pain or swelling, or redness or drainage from your incisions. Do not hesitate to contact the office with any questions at . The patient's medical history has been reviewed and they are considered low risk for post op DVT and therefore DVT prophylaxis is not considered necessary. Travel after surgery was reviewed. The patient has not disclosed any travel plans during the first 30 days after surgery and they have been advised that within the first 30 days after surgery any bus, plane, train or car travel over 2 hours in duration is contraindicated due to the possibility of developing blood clots from immobility. Any travel, needs to include periods of ambulation of 10 minutes in duration every 2 hours. The patient was instructed to discuss any plans for travel during this period with their bariatric surgeon. Assessment: s/p sleeve gastrectomy and paraesophageal hernia repair Discharge Date/Time: 08/16/22 09:59
[2022-08-15 13:46] LABS: Hemoglobin 12.7 g/dl (12.0-16.0)
[2022-08-15 14:04] LABS: Anion Gap 17 (12-20); Blood Urea Nitrogen 9 mg/dL (9-16); Calcium 8.5 mg/dL (8.4-10.2); Carbon Dioxide 21 mmol/L (22-29); Chloride 108 mmol/L (96-108); Creatinine Clr Calc Pharmacy 120.2; Estimated Glomerular Filt Rate > 60; Glucose Random 147 mg/dL (60-115); Potassium 3.5 mmol/L (3.3-5.1); Sodium 142 mmol/L (135-145)
[2022-08-15] MEDS: Famotidine/PF 20 MG/2 ML VIAL IVPUSH ×2 (14:11→20:39)
[2022-08-15] MEDS: ceFAZolin Sodium/Dextrose,Iso 2 GM/50 ML PIGGYBACK IV (16:07)
[2022-08-15] MEDS: 0.9 % Sodium Chloride Flush 3 ML SYRINGE IVFLUSH (20:39)
[2022-08-15] MEDS: ondansetron HCL 4 MG/2 ML VIAL IVPUSH (20:48)
[2022-08-15] MEDS: diphenhydrAMINE HCL 50 MG/ML VIAL 25 MG IVPUSH (21:58)
[2022-08-16 03:35] VITALS: BP 138/81; PULSE 77; RESP 18; TEMP 36.6; O2SAT 95
[2022-08-16] MEDS: ondansetron HCL 4 MG/2 ML VIAL IVPUSH (05:23)
[2022-08-16 06:59] LABS: MANUAL DIFF FLAG NO
[2022-08-16 07:09] VITALS: BP 132/66; PULSE 60; RESP 18; TEMP 36.8; O2SAT 96
[2022-08-16 07:11] LABS: Basophils Percent Auto 0.2 % (0-2); Eosinophils Percent Auto 0.1 % (0-4); Hematocrit 38.4 % (37.0-47.0); Hemoglobin 12.5 g/dl (12.0-16.0); Imm Gran Abs Auto 0.06 X10*3/uL (0.00-0.03); Imm Gran Pct Auto 0.5 % (0.0-0.4); Lymphocytes Absolute Auto 1.7 X10*3/uL (1.2-4.9); Lymphocytes Percent Auto 13.4 % (20-40); Mean Corpuscular HGB Conc 32.6 g/dl (31.0-35.0); Mean Corpuscular Hemoglobin 29.5 pg (27.0-33.0); Mean Corpuscular Volume 90.6 fL (80.0-98.0); Mean Platelet Volume 10.4 fL (9.4-12.3); Monocytes Absolute Auto 1.2 X10*3/uL (0.1-1.2); Monocytes Percent Auto 9.9 % (2-11); Neutrophils Absolute Auto 9.6 x10*3/uL (2.0-8.3); Neutrophils Percent Auto 75.9 % (45-73); Platelet Count 284 X10*3/uL (160-400); Red Blood Count 4.24 X10*6/uL (4.20-5.50); Red Cell Distribution Width 12.8 % (11.0-16.0); White Blood Count 12.6 X10*3/uL (4.8-10.8)
[2022-08-16 07:35] LABS: Anion Gap 17 (12-20); Blood Urea Nitrogen 10 mg/dL (9-16); Carbon Dioxide 23 mmol/L (22-29); Chloride 107 mmol/L (96-108); Creatinine Clr Calc Pharmacy 127.6; Estimated Glomerular Filt Rate > 60; Glucose Random 100 mg/dL (60-115); Potassium 4.3 mmol/L (3.3-5.1); Sodium 143 mmol/L (135-145)
[2022-08-16 07:44] LABS: Calcium 9.3 mg/dL (8.4-10.2)
[2022-08-16] MEDS: Famotidine/PF 20 MG/2 ML VIAL IVPUSH (08:35)
--- NOTE | 2022-08-16 10:28 | MHC.CM.PN ---
Cm attempted to meet w/pt at 8:46am however pt had already discharged home, cm unable to complete cm asssessment, no IMM necessary d/t insurance plan.
--- NOTE | 2022-08-16 11:06 | HO.POSTANES ---
Post Anesthesia Evaluation Post Anesthesia Evaluation Vital Signs: Vital Signs Temp Pulse Resp BP Pulse Ox O2 Del Method 08/16/22 07:09 98.3 F 60 18 132/66 96 Room Air 08/16/22 03:35 97.8 F 77 18 138/81 95 Room Air 08/15/22 23:39 98.0 F 82 18 144/74 H 98 Room Air Anesthesia: General Endotracheal-GETA Mental Status: Awake Pain Control: Satisfactory Nausea/Vomiting: None Hydration: Adequate Anesthesia-Related Issues: No Anes. Related Issues
== END 2022-08-16 09:59 | disposition home or self-care (01) | DRG 403 ==
LOC: HO.SSSA 13:11 → HO.S3 15:48
PROVIDERS: Physician Assistant; Admitting Provider Surgery; PCP Internal Medicine; Visit Provider Surgery
PROC: 0DB64Z3 Excision of Stomach, Percutaneous Endoscopic Approach, Vertical (ICD-10-PCS; CPT 43845; principal; 2022-08-15 10:10)
DX: E66.01 Morbid (severe) obesity due to excess calories (principal); K74.00 Hepatic fibrosis, unspecified; C50.919 Malignant neoplasm of unspecified site of unspecified female breast; K44.0 Diaphragmatic hernia with obstruction, without gangrene; Q43.3 Congenital malformations of intestinal fixation; K21.9 Gastro-esophageal reflux disease without esophagitis; M19.90 Unspecified osteoarthritis, unspecified site; F17.290 Nicotine dependence, other tobacco product, uncomplicated; C55 Malignant neoplasm of uterus, part unspecified; Z90.49 Acquired absence of other specified parts of digestive tract; Z88.0 Allergy status to penicillin; Z20.822 Contact with and (suspected) exposure to COVID-19; Z79.810 Long term (current) use of selective estrogen receptor modulators (SERMs); Z79.899 Other long term (current) drug therapy
CPT/HCPCS: 36415; 80048; 85014; 85018; 85025; 86850; 86900; 86901; 87635; 88307; 88341; 88342; A4649; C9088; J0131; J0690; J1100; J1170; J1200; J2250; J2405; J2550; J2795; J3010

== ENCOUNTER → 2022-09-06 12:25 | Outpatient (BNVA) | payer OTHER, SELFPAY | PROVIDERS: PCP Internal Medicine; Visit Provider Dietitian, Registered | DX: E66.3 Overweight (principal); Z98.84 Bariatric surgery status; Z71.3 Dietary counseling and surveillance | CPT/HCPCS: 97803 ==

== ENCOUNTER → 2022-09-26 13:13 | Outpatient (BNVA) | payer OTHER, SELFPAY | PROVIDERS: PCP Internal Medicine; Visit Provider Dietitian, Registered | DX: E66.3 Overweight (principal) | CPT/HCPCS: 97803 ==

== ENCOUNTER → 2022-11-09 12:57 | Outpatient (BNVA) | payer OTHER, SELFPAY | PROVIDERS: PCP Internal Medicine; Visit Provider Dietitian, Registered | DX: E66.3 Overweight (principal); Z71.3 Dietary counseling and surveillance | CPT/HCPCS: 97803 ==

== ENCOUNTER → 2023-01-08 11:39 | Outpatient (BNVA) | payer SELFPAY | PROVIDERS: PCP Internal Medicine; Visit Provider Dietitian, Registered | DX: E66.3 Overweight (principal); Z68.25 Body mass index [BMI] 25.0-25.9, adult | CPT/HCPCS: 97803 ==

== ENCOUNTER 2024-05-19 13:28 | Outpatient (AMB) | payer BC, SELFPAY ==
--- NOTE | 2024-05-19 13:20 | A.OFFVIS_ITS ---
VS Expanded 05/19/24 13:21 Height 5 ft 8 in Weight 191 lb 9.6 oz BMI 29.1 Intake Visit Reasons: (tV) PO LSG 08/15/22 Allergies morphine Allergy (Severe, Verified 08/22/22 12:57) Anaphylaxis HPI Comments Details: Patient is a pleasant 49-year-old female who returns to the office today in follow-up. She is 1 year 9 months post sleeve gastrectomy performed on 08/15/[address] Wang. Weight at the time of surgery was 204.6 lb. Weight today is 191.6 pounds with a BMI of 29.1. Lowest weight was 160 but got injured after laying mulch with upper abdominal pain and then nausea after meals. She went to urgent care. She reports increased pain in upper abdomen when bending over to pick something up and very rare with straining to move bowels. She feels as though this is some improvement but has had some noticeable belly bloat. She has had a HH repair at the time of the LSG Meal plan: 2 eggs w 2 links sausage montserratian yogurt or 1/4 c cottage cheese salad w ham and cheese (not measuring) cheese protein and veg 9 forks each. Exercise plan: nothing in 2 weeks stationary bike and treadmill at home. tossing rope [facility] Medical History (Updated 08/19/22 @ 00:03 by Khushbu Musa) Vasovagal episode Fatty liver Uterine cancer Bunion HX: breast cancer Surgical History (Updated 08/22/22 @ 13:01 by Mariya Ag CMA) S/P gastric sleeve procedure History of bunionectomy of both great toes Hx of tonsillectomy History of surgery on arm History of carpal tunnel release of both wrists History of back surgery Hx of cholecystectomy History of lumpectomy of both breasts H/O hysterectomy for benign disease Social History Household Members: Significant Other Housing: House Are you a primary women's health care nurse practitioner to a significant other at home: No Do you presently have visiting nurse or other home services: No 75 years or older and lives alone: No Alcohol intake: current Alcohol intake frequency: holidays/special occasions only Alcohol type: wine Patient Tobacco Use Status: Former Tobacco user Tobacco use type: Cigarette Years Smoked: Quit in Nov 2021 now vaping 2-3 times a day 2 mg e-Cigarette/Vaping Use: Currently Using service: No Current occupational status: employed 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[place] [facility] [place] Telehealth Telehealth Telehealth Platform: Telephone Location of provider rendering services: practice address Location of patient: address on file Patient Identification confirmed using: Name, : Yes Telehealth method: voice only Patient verbally consented to treatment: Yes Patient verbally consented to billing insurance company: Yes Patient informed of any privacy concerns related to visit: Yes Minutes spent on Phone/Video with Pt.: 15 Assessment & Plan Assessment & Plan (1) S/P laparoscopic sleeve gastrectomy: Code(s): Z98.84 - Bariatric surgery status Category: Surgical Plan: Patient has a history of hiatal hernia repair. She is complaining of epigastric discomfort, worse with bending over or straining, possibly significant for recurrent hiatal hernia given that it started after doing significant heavy lifting while gardening approximately 6 weeks ago. In any event, we will change her meal plan to be more in line with weight loss: Two eggs Tristanian yogurt Meal with 6 forks of protein and 6 of vegetables Meal with 8 forks of protein and 8 of vegetables Encouraged to resume exercise with a goal of burning 300 calories per day utilizing treadmill and stationary bike, avoiding weights or rope tossing. Return to clinic 1 month
[2024-05-19 13:21] VITALS: BMI 29.1
== END 2024-05-19 13:34 | disposition home or self-care (01) ==
LOC: HO.HBS 13:28
PROVIDERS: PCP Internal Medicine; Visit Provider Physician Assistant Surgical
DX: E66.3 Overweight (principal); Z68.29 Body mass index [BMI] 29.0-29.9, adult; Z90.3 Acquired absence of stomach [part of]; Z98.84 Bariatric surgery status
CPT/HCPCS: 99213

== ENCOUNTER → 2024-05-19 13:28 | Outpatient (BNVA) | payer BC, SELFPAY | PROVIDERS: PCP Internal Medicine; Visit Provider Physician Assistant Surgical ==

== ENCOUNTER 2024-07-01 08:50 | Day surgery (SDC) | payer BC, SELFPAY ==
[2024-07-01 09:49] VITALS: BP 183/99; PULSE 80; RESP 18; TEMP 36.1; O2SAT 97; BMI 29.5
[2024-07-01 10:03] VITALS: BP 152/87
[2024-07-01] MEDS: Lactated Ringers 1,000 ML 80 ML IVCONT (10:08)
--- NOTE | 2024-07-01 10:18 | MHC.SHP ---
Pre-Procedural Eval Section A - 24 Hr Update-Section A only Date of Service: 07/01/24 The patient is an INPATIENT: No The patient has been examined within 24 hours of the surgical procedure. The History & Physical has been completed within 30 days and I have reviewed it.: Yes Section B - Complete if H&P > 30 days Chief Complaint: Gastro-esophageal reflux disease without esophagit Details of Present Illness: Epigastric pain Relevant Family History (Specify if Yes): No Relevant Social History: None Present Medications: None Medical History: No relevant PMH History of Previous Operations: Relevant previous surgery/procedure and date(s) (Lap sleeve gastrectomy) Allergies: Allergies Allergy/AdvReac Type Severity Reaction Status Date / Time morphine Allergy Severe Anaphylaxis Verified 08/22/22 12:57 Review of Systems Sugical H&P ROS: Negative: Constitution, Cardiovascular, Respiratory, Neurological, Psychiatric, Hem-Onc, Allergic/Immunologic, Genitourinary, Musculoskeletal, Integumentary, Endocrine and Eyes/Ears/Nose/Throat and Yes, Specify: Gastrointestinal (Epigastric pain) Exam Surgical H&P Exam: Normal: HEENT, Normal: Heart, Normal: Lungs, Normal: Extremities, Normal: Abdomen, Normal: Skin and Normal: Neurological Plan Diagnosis/Plan: Unchanged (EGD to assess etiology of the abdominal pain. Risks of bleeding and perforation were discussed with the patient and she is in agreement with the plan.) I have reviewed the history and physical and performed a pertinent physical examination on my patient. No changes have occurred unless specified. Time Spent With Patient Time: Total time managing care of this patient today ____ minutes.
--- NOTE | 2024-07-01 10:24 | P.BOP_ITS ---
Brief Operative Note Date of Service: 07/01/24 Pre-op diagnosis: Epigastric pain, s/p sleeve gastrectomy Post-op diagnosis: same (1) small hiatal hernia, 2) gastritis) Procedure: PROCEDURE DATE: 07/01/2024 PREOPERATIVE DIAGNOSIS: GERD, s/p sleeve gastrectomy POSTOPERATIVE DIAGNOSIS: ?Same as above. 1) small hiatal hernia, 2) distal gastritis PROCEDURE: [id number] with biopsies Surgeon: ?Aime Wang M.D.. Ph.D. Lineman Service Or Work Dispatcher: None ? Anesthesia: IV sedation Estimated blood loss: ?Minimal FINDINGS AND PROCEDURE: ? OPERATIVE INDICATIONS: ?The patient is a 49 year old female known to me who underwent a laparoscopic sleeve gastrectomy. The patient had good weight loss so far and had a completely uneventful recovery.? The patient was doing very well but has recently been complaining of postprandial epigastric and left upper quadrant abdominal pain. Based on this information I recommended an upper endoscopy to evaluate the patient's symptoms. Risks and complications of the surgery were discussed with the patient in advance particularly the possibility of perforation or bleeding that may require surgical intervention. The patient understood the risks and was in agreement with the plan. ? PROCEDURE: After informed consent was obtained by the patient, the patient was ?transferred to the Operating Room and was placed in the supine position.? After successful induction of IV sedation, a mouth block was inserted and the patient was placed in the left lateral decubitus position. An upper endoscopy was performed next, the oropharynx and esophagus appeared within the normal limits. There was a small 2-3cm hiatal hernia. The z-line was smooth. Two biopsies were obtained from the distal esophagus 2-3 cm proximal to the GE junction and two additional biopsies from the GE junction. The sleeve was entered and it appeared to be of normal size. There was mild gastritis at distal antrum. There was no stricture or ulcer. Biopsies were obtained from the proximal sleeve as well as the distal antrum. No significant bleeding was noted from any of the biopsy sites. Retroflexion of the scope was not performed due to the sleeve. The scope was then advanced into the duodenum which appeared to be normal as well. At that point the duodenum ?and the sleeve were decompressed and the scope was withdrawn from the patient's mouth. The patient extubated and was transferred in stable condition to the Recovery Room for further care. I was present and performed all steps of the procedure. There were no residents to assist with this case. Aime Wang M.D., Ph.D. Surgeon: Rocael Wang MD Anesthesia: MAC Was an Lineman Service Or Work Dispatcher used for this Procedure?: No Estimated blood loss (mL): 0 IV fluids (mL): 400 Urine output (mL): 0 (No Folry to record output) Pathology: other (1) antrum x1, 2) proximal sleeve/gastric fundus x1, 3) EGJ x2, 4) distal esophagus x2) Condition: stable Disposition: PACU
--- NOTE | 2024-07-01 11:00 | HO.ANESPROP2 ---
HPI - Anesthesia Eval Consult details Narrative: endo PMFSH Active Problems Active Problems: All Active Problems Status post repair of paraesophageal diaphragmatic hernia (Acute) S/P laparoscopic sleeve gastrectomy (Acute) Liver fibrosis (Acute) BMI 31.0-31.9,adult (Acute) Adjustment disorder, unspecified (Acute) GERD (gastroesophageal reflux disease) (Acute) BMI 34.0-34.9,adult (Acute) Osteoarthritis (Acute) Obesity (BMI 30-39.9) (Acute) Weight gain (Acute) Bilateral hand pain (Acute) Foot pain, bilateral (Acute) History of endometrial cancer (Acute) Breast cancer (Acute) Multiple joint pain (Acute) Sjogren's disease (Acute) Fatty liver (Acute) Uterine cancer (Acute) HX: breast cancer (Acute) Past Medical History Medical History Vasovagal episode Fatty liver Uterine cancer Bunion HX: breast cancer Family History Family history of problems with anesthesia: No Surgical History Surgical History Hx of endoscopy S/P gastric sleeve procedure History of bunionectomy of both great toes Hx of tonsillectomy History of surgery on arm History of carpal tunnel release of both wrists History of back surgery Hx of cholecystectomy History of lumpectomy of both breasts H/O hysterectomy for benign disease History of Problems with Anesthesia: No Social History Social History Household Members: Significant Other Housing: House Are you a primary customer care coordinator to a significant other at home: No Do you presently have visiting nurse or other home services: No Alcohol intake: current Alcohol intake frequency: holidays/special occasions only Alcohol type: wine Patient Tobacco Use Status: Former Tobacco user Tobacco use type: Smokeless Tobacco Years Smoked: Quit in Nov 2021 now vaping 2-3 times a day 2 mg e-Cigarette/Vaping Use: Currently Using Are you DNR?: No Advance Directives: No Advance Directives Information Provided: Yes service: No Current occupational status: employed 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 Allergies Allergy/AdvReac Type Severity Reaction Status Date / Time morphine Allergy Severe Anaphylaxis Verified 08/22/22 12:57 Active Medications: Current Medications Lactated Ringer's (Lr) 1,000 mls @ 80 mls/hr IVCONT .[id number] HORACIO Last Admin: 07/01/24 10:08 Dose: 80 mls/hr Home Medications ?Medication ?Instructions ?Recorded ?Confirmed ?Last Taken ?Type acetaminophen 500 mg tablet 1,000 mg PO BID 05/11/22 08/22/22 08/14/22 History (Tylenol Extra Strength) Exam Height,Weight and Vital Signs: Height 5 ft 8 in Weight 87.997 kg Last Vital Signs Temp 96.9 F 07/01/24 09:49 Pulse 80 07/01/24 09:49 Resp 18 07/01/24 09:49 BP 152/87 H 07/01/24 10:03 Pulse Ox 97 07/01/24 09:49 O2 Del Method Room Air 07/01/24 09:49 Airway Mallampati Class: II TM Dist: >3cm Neck ROM: Full Heart: rrr Lungs: cta Assessment and Plan Assessment Anesthesia Assessment: Anesthesia Plan Discussed Final Anesthetic Review Family History of Problems with Anesthesia: No History of Problems with Anesthesia: No NPO: Yes ASA Class: III Final Preanesthetic Review: No Changes in Pt Med Stat, Meds/Allgs Chart Reviewed, Consent Obtained/Reviewed and Anes Risks/Benef Reviewed Patient Risk: Intermediate Procedure Risk: Low Anesthetic Plan Anesthetic Plan: MAC: Disposition: Standard PACU
[2024-07-01 11:34] VITALS: BP 117/81; PULSE 93; RESP 16; TEMP 36.8; O2SAT 99
[2024-07-01 11:49] VITALS: BP 149/93; PULSE 78; RESP 16; TEMP 36.7; O2SAT 99
== END 2024-07-01 12:31 | disposition home or self-care (01) ==
PROVIDERS: PCP Nurse Practitioner Adult Health; Visit Provider Surgery
PROC: 0DJ08ZZ Inspection of Upper Intestinal Tract, Via Natural or Artificial Opening Endoscopic (ICD-10-PCS; CPT 43235; principal; 2024-07-01 10:50)
DX: K21.9 Gastro-esophageal reflux disease without esophagitis (principal); R10.13 Epigastric pain; K29.60 Other gastritis without bleeding; K44.9 Diaphragmatic hernia without obstruction or gangrene; Z98.84 Bariatric surgery status; Z66 Do not resuscitate; Z98.890 Other specified postprocedural states; Z87.891 Personal history of nicotine dependence
CPT/HCPCS: 43239; 88305; 88313; 88342; J2704

== ENCOUNTER → 2024-07-01 08:50 | Outpatient (BNV) | payer BC, SELFPAY | PROVIDERS: PCP Nurse Practitioner Adult Health; Visit Provider Surgery | DX: K44.9 Diaphragmatic hernia without obstruction or gangrene (principal) | CPT/HCPCS: 43239 ==

== ENCOUNTER 2024-08-01 08:00 | Outpatient (AMB) | payer BC, SELFPAY ==
--- NOTE | 2024-08-01 08:01 | A.OFFVIS_ITS ---
VS Expanded 08/01/24 08:04 Height 5 ft 8 in Weight 192 lb BMI 29.2 Intake Visit Reasons: (TV) PO LSG 08/15/22 Staff Developer Required: No Allergies morphine Allergy (Severe, Verified 08/22/22 12:57) Anaphylaxis Medication List - Last Reconciled 08/01/24 by LARS Krishnamurthy acetaminophen (Tylenol Extra Strength) 1,000 mg PO BID HPI Comments Details: Patient is a pleasant 49-year-old female who returns to the office today in follow-up. She is 1 year 11 months post sleeve gastrectomy performed on 08/15/[address] Wang. Weight at the time of surgery was 204.6 lb. Weight today is 192 pounds with a BMI of 29.2. Lowest weight was 160 but got injured after laying mulch with upper abdominal pain and then nausea after meals. She went to urgent care. She reports increased pain in upper abdomen when bending over to pick something up and very rare with straining to move bowels. She feels as though this is some improvement but has had some noticeable belly bloat. She has had a HH repair at the time of the LSG. No complaints of gerd but pos bloat. Started fiber one gummy 2 months ago, no change in bloat but improved regularity. 07/01/2024 upper endoscopy revealed small hiatal hernia. Meal plan: Two eggs Persian yogurt or 1/4 c cottage cheese Meal with 6 forks of protein and 6 of vegetables Meal with 6 forks of protein and 6 of vegetables Drinking 64-96 oz water Exercise plan: treadmill at home 3 miles every other day, 3-4 days per week, 400 adalberto PFSH Medical History Vasovagal episode Fatty liver Uterine cancer Bunion HX: breast cancer Surgical History Hx of endoscopy S/P gastric sleeve procedure History of bunionectomy of both great toes Hx of tonsillectomy History of surgery on arm History of carpal tunnel release of both wrists History of back surgery Hx of cholecystectomy History of lumpectomy of both breasts H/O hysterectomy for benign disease Social History Household Members: Significant Other Housing: House Are you a primary career and technology education teacher to a significant other at home: No Do you presently have visiting nurse or other home services: No 75 years or older and lives alone: No Alcohol intake: current Alcohol intake frequency: holidays/special occasions only Alcohol type: wine Patient Tobacco Use Status: Former Tobacco user Tobacco use type: Smokeless Tobacco Years Smoked: Quit in Nov 2021 now vaping 2-3 times a day 2 mg e-Cigarette/Vaping Use: Currently Using service: No Current occupational status: employed 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[facility] [place] Telehealth Telehealth Platform: Telephone Location of provider rendering services: practice address Location of patient: address on file Patient Identification confirmed using: Name, : Yes Telehealth method: voice only Patient verbally consented to treatment: Yes Patient verbally consented to billing insurance company: Yes Patient informed of any privacy concerns related to visit: Yes Minutes spent on Phone/Video with Pt.: 20 Assessment & Plan Assessment & Plan (1) S/P laparoscopic sleeve gastrectomy: Code(s): Z98.84 - Bariatric surgery status Category: Surgical Plan: Overall doing fairly well with her meal plan. Recommend increasing exercise by 1 day to achieve a goal of 2000 calories burned per week. Additionally, continue current water intake and multivitamin. Regarding her abdominal bloating, we will refer her to GI, she states that she had had bloating for years before her sleeve although none for 1 year after her sleeve and then returning for the last about 10 months. Question whether this is mechanical by way of swallowing more air as she has had difficulty with her lower teeth which she is in the process of getting dentures. Additionally, other etiology may include enzyme imbalance. She agreed for referral to GI. She does continue with fiber gummies which help her maintain regularity with her bowel movements. Return to the office as scheduled Orders: Orders Lipid Panel Today K74.00 - Hepatic fibrosis, unspecified, K76.0 - Fatty (change of) liver, not elsewhere classified, Z98.84 - Bariatric surgery status IRON PROFILE Today K74.00 - Hepatic fibrosis, unspecified, K76.0 - Fatty (change of) liver, not elsewhere classified, Z98.84 - Bariatric surgery status Vitamin B12 and Folate Today K74.00 - Hepatic fibrosis, unspecified, K76.0 - Fatty (change of) liver, not elsewhere classified, Z98.84 - Bariatric surgery status TSH reflex Free T4 Today K74.00 - Hepatic fibrosis, unspecified, K76.0 - Fatty (change of) liver, not elsewhere classified, Z. - Bariatric surgery status Vitamin D 25-OH Total Today K74.00 - Hepatic fibrosis, unspecified, K76.0 - Fatty (change of) liver, not elsewhere classified, Z.84 - Bariatric surgery status Insulin Today K74.00 - Hepatic fibrosis, unspecified, K76.0 - Fatty (change of) liver, not elsewhere classified, Z.84 - Bariatric surgery status Hemoglobin A1c Today K74.00 - Hepatic fibrosis, unspecified, K76.0 - Fatty (change of) liver, not elsewhere classified, Z. - Bariatric surgery status Complete Blood Count Auto Diff Today K74.00 - Hepatic fibrosis, unspecified, K76.0 - Fatty (change of) liver, not elsewhere classified, Z. - Bariatric surgery status Zinc Today K74.00 - Hepatic fibrosis, unspecified, K76.0 - Fatty (change of) liver, not elsewhere classified, Z.84 - Bariatric surgery status C Reactive Protein Today K74.00 - Hepatic fibrosis, unspecified, K76.0 - Fatty (change of) liver, not elsewhere classified, Z. - Bariatric surgery status Vitamin B1 Today K74.00 - Hepatic fibrosis, unspecified, K76.0 - Fatty (change of) liver, not elsewhere classified, Z.84 - Bariatric surgery status Vitamin A Today K74.00 - Hepatic fibrosis, unspecified, K76.0 - Fatty (change of) liver, not elsewhere classified, Z.84 - Bariatric surgery status Ferritin Today K74.00 - Hepatic fibrosis, unspecified, K76.0 - Fatty (change of) liver, not elsewhere classified, Z.84 - Bariatric surgery status Basic Metabolic Panel Today K74.00 - Hepatic fibrosis, unspecified, K76.0 - Fatty (change of) liver, not elsewhere classified, Z.84 - Bariatric surgery status Referrals Gastroenterology Referral K74.00 - Hepatic fibrosis, unspecified, K76.0 - Fatty (change of) liver, not elsewhere classified, Z.84 - Bariatric surgery status
[2024-08-01 08:04] VITALS: BMI 29.2
== END 2024-08-01 08:25 | disposition home or self-care (01) ==
LOC: HO.HBS 08:00
PROVIDERS: PCP Nurse Practitioner Adult Health; Visit Provider Physician Assistant Surgical
DX: E66.3 Overweight (principal); Z68.29 Body mass index [BMI] 29.0-29.9, adult; Z90.3 Acquired absence of stomach [part of]; Z98.84 Bariatric surgery status
CPT/HCPCS: 98967

== ENCOUNTER → 2024-08-01 08:00 | Outpatient (BNVA) | payer BC, SELFPAY | PROVIDERS: PCP Nurse Practitioner Adult Health; Visit Provider Physician Assistant Surgical ==

== ENCOUNTER 2024-09-29 11:00 | Outpatient (AMB) | payer BC, SELFPAY ==
--- NOTE | 2024-09-29 07:57 | MHC.OFFVISWM ---
VS Expanded 09/29/24 07:58 Height 5 ft 8 in Weight 192 lb 4 oz BMI 29.2 Body Fat % 36.6 Body Fat Mass 70.4 Fat Free Mass 122 Visceral Fat Rating 12 Body Water % 43.5 Body Water Mass 83.6 Muscle Mass/Score 114.6 Basal Metabolic Rate/Score 1,565 Intake Visit Reasons: (TV) PO LSG 08/15/22 Allergies morphine Allergy (Severe, Verified 08/22/22 12:57) Anaphylaxis Medication List - Last Reconciled 09/29/24 by LARS Krishnamurthy acetaminophen (Tylenol Extra Strength) 1,000 mg PO BID HPI Comments Details: Patient is a pleasant 49-year-old female who returns to the office today in follow-up. She is 2 year 1 months post sleeve gastrectomy performed on 08/15/[address] Wang. Weight at the time of surgery was 204.6 lb. Weight today is 192.4 pounds with a BMI of 29.2. Lowest weight was 160 but got injured after laying mulch with upper abdominal pain and then nausea after meals. She went to urgent care. She reports increased pain in upper abdomen when bending over to pick something up and very rare with straining to move bowels. She feels as though this is some improvement but has had some noticeable belly bloat. She has had a HH repair at the time of the LSG. No complaints of gerd but pos bloat. Started fiber one gummy 2 months ago, no change in bloat but improved regularity. Taking vitafusion mvi 07/01/2024 upper endoscopy revealed small hiatal hernia. She does have a history of abdominal bloating predating her surgery. Referred to GI. Additionally, she was going to get her lower teeth fixed by way of dentures. Follow up with GI is pending. Meal plan: Two eggs handful of nuts Meal with 6 forks of protein and 6 of vegetables Meal with 6 forks of protein and 6 of vegetables Drinking 64-96 oz water Exercise plan: weight training every other day treadmill at home 3.5 miles,5 days per week, 300 adalberto Any post op complications: none SUKHWINDER: never DM: never HTN: never Hyperlipidemia: never GERD:?0-5 scale ??0 = no symptoms ??1 = symptoms noticeable but not bothersome 2 =symptoms bothersome but not daily ? 3 = symptoms bothersome and daily 4 = symptoms affect daily activities 5 = symptoms are incapacitating, unable to do daily activities ? How bad is the heartburn: 0 ? Heartburn while lying down: 0 ? Heartburn when standing up: 0 ? Heartburn after meals: 0 ? Does heartburn change your diet: 0 ? Does heartburn wake you up from sleep: 0 ? Do you have difficulty swallowin ? Do you have pain with swallowin ? If you take medicine for your reflux, does this affect your daily life: 0 Satisfaction with present condition - satisfied or not satisfied: disatisfied [facility] Medical History Vasovagal episode Fatty liver Uterine cancer Bunion HX: breast cancer Surgical History Hx of endoscopy S/P gastric sleeve procedure History of bunionectomy of both great toes Hx of tonsillectomy History of surgery on arm History of carpal tunnel release of both wrists History of back surgery Hx of cholecystectomy History of lumpectomy of both breasts H/O hysterectomy for benign disease Social History Household Members: Significant Other Housing: House Are you a primary manager urgent care to a significant other at home: No Do you presently have visiting nurse or other home services: No 75 years or older and lives alone: No Alcohol intake: current Alcohol intake frequency: holidays/special occasions only Alcohol type: wine Patient Tobacco Use Status: Former Tobacco user Tobacco use type: Smokeless Tobacco Years Smoked: Quit in Nov 2021 now vaping 2-3 times a day 2 mg e-Cigarette/Vaping Use: Currently Using service: No Current occupational status: employed 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[employer] [facility] [place] Exam Vital Signs: BMI result Body Mass Index 29.2 Telehealth Telehealth Telehealth Platform: Telephone Location of provider rendering services: practice address Location of patient: address on file Patient Identification confirmed using: Name, : Yes Telehealth method: voice only Patient verbally consented to treatment: Yes Patient verbally consented to billing insurance company: Yes Patient informed of any privacy concerns related to visit: Yes Minutes spent on Phone/Video with Pt.: 18 Assessment & Plan Assessment & Plan (1) S/P laparoscopic sleeve gastrectomy: Code(s): Z98.84 - Bariatric surgery status Category: Surgical Plan: Suggest the patient remove the handful of nuts that she is having mid morning. Add fresh fruit if she wishes. A greater concern is her feeling as though clothes are not fitting as she wishes with tightness at the waist. We will recommend changing her exercise routine: Goal of 6 days per week, burning 350 calories or more. 20 minutes weight training, 40-45 minutes of cardio Treadmill, speed 3.7, incline 2-15 She has treadmill, stationary bike and rowing machine at home. Recommend rotating cardio equipment on a daily basis. Encouraged to continue to text weight weekly and any questions Return to clinic 4-5 weeks. Check 2 year postop labs.
[2024-09-29 07:58] VITALS: BMI 29.2
== END 2024-09-29 11:35 | disposition home or self-care (01) ==
LOC: HO.HBS 11:11
PROVIDERS: PCP Nurse Practitioner Adult Health; Visit Provider Physician Assistant Surgical
DX: E66.3 Overweight (principal); Z68.29 Body mass index [BMI] 29.0-29.9, adult; Z90.3 Acquired absence of stomach [part of]; Z98.84 Bariatric surgery status
CPT/HCPCS: 98967

== ENCOUNTER → 2024-09-29 11:00 | Outpatient (BNVA) | payer BC, SELFPAY | PROVIDERS: PCP Nurse Practitioner Adult Health; Visit Provider Physician Assistant Surgical | DX: Z98.84 Bariatric surgery status (principal); K74.00 Hepatic fibrosis, unspecified; K76.0 Fatty (change of) liver, not elsewhere classified ==